=== PATIENT | female | born 1990 | race Caucasian/White ===

== ENCOUNTER 2019-01-02 10:37 | Emergency (ER) | payer BC ==
[2019-01-02 10:57] VITALS: BP 113/71; PULSE 92; TEMP 99; BMI 21.9
--- NOTE | 2019-01-02 12:09 | PDOC ---
History of Present Illness - General Chief Complaint: Injury Stated Complaint: LT KNEE LACERATION Time Seen by Provider: 01/02/19 11:29 History Source: Patient - History of Present Illness Occurred: reports: this morning Pain Location: reports: lower extremity Past History - Past Medical History Allergies/Adverse Reactions: Allergies Allergy/AdvReac Type Severity Reaction Status Date / Time amoxicillin [From Augmentin] Allergy Verified 01/02/19 11:10 clavulanic acid Allergy Verified 01/02/19 11:10 [From Augmentin] Home Medications: Ambulatory Orders NK [No Known Home Medication] 01/02/19 COPD: No - Suicide/Smoking/Psychosocial Hx Smoking History: Never smoked Information on smoking cessation initiated: Yes Hx Alcohol Use: Yes (occasionally) Drug/Substance Use Hx: No Review of Systems - Review of Systems Constitutional: No: Chills, Fever Neurological: No: Numbness, Tingling *Physical Exam - Vital Signs Last Vital Signs Temp Pulse Resp BP Pulse Ox 99 F 92 H 18 113/71 100 01/02/19 10:53 01/02/19 10:53 01/02/19 10:53 01/02/19 10:53 01/02/19 10:53 - Physical Exam General Appearance: Yes: Appropriately Dressed. No: Apparent Distress HEENT: positive: Normal Voice Neck: positive: Supple Respiratory/Chest: negative: Respiratory Distress Extremity: positive: Other (1cm superficial lac to anterior L thigh) Integumentary: positive: Dry, Warm Neurologic: positive: Fully Oriented, Alert, Normal Mood/Affect Procedures - Laceration/Wound Repair Left Thigh Wound Length: to 2.5 cm Wound's Depth, Shape: superficial Irrigated w/ Saline: Yes Betadine Prep: Yes Anesthesia: 1% Lidocaine Amount of Anesthetic (ccs): 5 Wound Repaired With: Sutures Suture Size/Type: 4:0, nylon Number of Sutures: 6 Sterile Dressing Applied: Yes (bacitracic, xeroform, adhesive bandage) Medical Decision Making - Medical Decision Making 01/02/19 12:11 28-year-old female, no significant history, here with laceration to L thigh a.m while handling small razor blade this am. No numbness or tingling. States tetanus up-to-date See exam Thigh lac S/p suture repair -tetanus UTD -wound check as needed in 2 days *DC/Admit/Observation/Transfer Diagnosis at time of Disposition: Thigh laceration Qualifiers: Encounter type: initial encounter Laterality: left Qualified Code(s): S71.112A - Laceration without foreign body, left thigh, initial encounter - Discharge Dispostion Disposition: HOME - Referrals - Patient Instructions Printed Discharge Instructions: DI for Laceration Repair Additional Instructions: Keep dressing in place for at least 24 hours after which one can be opened to air. You can gently cleaned wound with mild soap and water after 24 hours to prevent crusting over the suture knots. You can also apply an antibiotic ointment twice a day until sutures are removed. Return for redness, discharge or fever Sutures are removed in 8-1o days - Post Discharge Activity
== END 2019-01-02 12:17 | disposition home or self-care (01) ==
LOC: JERFT 10:37
PROC: 0HQJXZZ Repair Left Upper Leg Skin, External Approach (ICD-10-PCS; principal; 2019-01-02)
DX: S71.112A Laceration without foreign body, left thigh, initial encounter (principal); W26.0XXA Contact with knife, initial encounter; Y93.9 Activity, unspecified; Y92.89 Other specified places as the place of occurrence of the external cause
CPT/HCPCS: 99281-25